=== PATIENT | male | born 2000 | race Caucasian/White ===

== ENCOUNTER 2022-06-20 13:21 | Emergency (ER) | payer OTHER, BC ==
[2022-06-20] MEDS ORDERED: Lidocaine 1% 5 ML VIAL INJECT ONE (13:36)
[2022-06-20] MEDS ORDERED: Bacitracin Oint 1 GM U/D Packet TOP ONE (13:36)
[2022-06-20] MEDS ORDERED: Diphtheria,Pertussis(Acell),Tetanus Vaccine 0.5 ML Syringe IM ONE (13:39)
== END 2022-06-20 14:50 | disposition home or self-care (01) ==
LOC: JP.ED 13:21
DX: S61.213A Laceration without foreign body of left middle finger without damage to nail, initial encounter (principal); Z23 Encounter for immunization; W23.0XXA Caught, crushed, jammed, or pinched between moving objects, initial encounter
CPT/HCPCS: 12001; 90471; 90715; 99281; 99282-25